=== PATIENT | male | born 1960 | race African-American/Black ===

== ENCOUNTER 2024-06-22 22:15 | Emergency (ER) | payer OTHER ==
[~2024-06-22] VITALS: Ht 185.4 cm; Wt 89.0 kg
[~2024-06-22 22:15] MED LIST: BENA-8 PO; HYDR12.529 PO
[2024-06-22 22:32] VITALS: O2SAT 99
[2024-06-22 22:44] VITALS: BP 179/104; PULSE 68; RESP 16; TEMP 98.1; O2SAT 100
== END 2024-06-23 02:21 | disposition left against medical advice (07) ==
LOC: ER 22:15
DX: I10 Essential (primary) hypertension (principal); Z53.21 Procedure and treatment not carried out due to patient leaving prior to being seen by health care provider
CPT/HCPCS: 93005